=== PATIENT | female | born 1965 | race Caucasian/White ===

== ENCOUNTER 2024-01-28 16:14 | Emergency (ER) | payer OTHER, SELFPAY ==
[2024-01-28 16:23] VITALS: BP 126/69
--- NOTE | 2024-01-28 17:03 | ED.GENMED ---
History of Present Illness
General
Chief Complaint: Musculo-Skeletal Complaint
Source: patient
Time Seen by Provider: 01/28/24 16:58
Travel History
Have you had any contact with someone who has COVID-19?: No
Do you have any symptoms of coronavirus? Fever > 100 degrees, chills, cough, shortness of breath, sore throat, loss of taste or smell, muscle aches, or headache?: No
History of Present Illness
History of Present Illness:
58-year-old female presenting the emergency department for evaluation following an accidental trip and fall where she was walking outside and tripped over the sidewalk landing on her left forearm. She states that her head did strike the ground
however denies any loss consciousness, headache, vomiting, visual changes or any other concerns other than her left forearm pain. Pain worsens when trying to fully extend her left elbow or pronate/supinate. She denies any use of anticoagulants.
Did not take anything for pain prior to arrival. No other concerns at this time.
Past History
Past History
ED Past Medical History: None
ED Past Surgical History: None
Social History
Tobacco: Non-smoker
Alcohol: Occasional
Drug: None
Personal:
Living: with family
Review of Systems
Review of Systems
All Other Systems: ROS reviewed and negative except as documented in HPI and ROS
Phy Exam
Physical Exam
Physical Exam:
GENERAL: Alert , in no apparent distress
EYE: conjunctiva clear
Head: Normocephalic atraumatic
NECK: Supple,
ENT: mmm.
LUNGS: no acute respiratory distress
NEUROLOGICAL: Alert and oriented
SKIN: Warm and dry, skin intact.
MUSCULOSKELETAL: Left upper extremity: Tenderness over the posterior aspect of the left elbow. Range of motion is diminished especially with pronation and supination secondary to pain. Extremities otherwise warm and well-perfused with palpable
radial pulse and otherwise neurovascularly intact
PSYCH: Normal and appropriate interaction.
Scores
Heart Failure Risk
Heart Failure Risk Score: Not Applicable
Heart Score for Chest Pain Patients
STEMI patient?: Not applicable
Withdrawal Assessment of Alcohol
Withdrawal Assessment Completed?: Not applicable
Course
Orders/Labs/Results
Orders:
Orders
01/28/24 16:28
Forearm, Left 2 View [CR Forearm - Left 2 View] Urgent
Comment:
Reason For Exam: injury/trauma
01/28/24 16:58
Sling Left-Treatment ONCE
Vital Signs
Initial and Last Documented VS:
Initial Vital Signs
Temp Pulse Resp BP Pulse Ox
97.5 F 86 18 126/69 98
01/28/24 16:23 01/28/24 16:23 01/28/24 16:23 01/28/24 16:23 01/28/24 16:23
Last Documented Vital Signs
Temp Pulse Resp BP Pulse Ox
97.5 F 73 18 115/78 98
01/28/24 16:23 01/28/24 17:22 01/28/24 16:23 01/28/24 17:22 01/28/24 16:23
MDM/Problems Addressed
Differential Diagnosis Includes:
Elbow contusion, elbow fracture, I do not have concern for intracranial bleeding
MDM/Problems Addressed:
58-year-old female presenting to the emergency department for evaluation after an accidental trip and fall resulting in left elbow pain. X-ray was ordered from triage and shows a nondisplaced radial head fracture. Patient was placed in a sling for
comfort and she states this has helped her pain immensely. She was provided with information for outpatient orthopedic follow-up. Motrin/Tylenol as needed for pain. Otherwise stable for discharge home.
*Radiology
Radiology exam reviewed: preliminary read by ED provider (Nondisplaced radial head fracture)
*Pulse Oximetry
Patient hypoxic: no
*Critical Care Note
Total Time (30-74mins, 75-104mins- exclusive of procedures): Not Applicable
ED Attending Note
-
Portions of this chart may have been created with voice recognition software.� Occasional wrong word or��sound alike� substitutions may have occurred due to the inherent limitations of voice recognition software.
Discharge Plan
Departure
Patient Disposition: Home (Routine Discharge)
Date of Disposition: 01/28/24
Time of Disposition: 17:03
Patient with high blood pressure during this ER visit?: No
Discharge Problem:
Closed fracture of head of left radius
Instructions: Elbow Fracture, Adult ED
Referrals:
Uche Forrest MD [Active] - (Orthopedist - Call for appointment)
Interventions
Interventions:
*Risk Screen - Suicide Last Done: 01/28/24 16:23
*General Assessment Last Done: 01/28/24 16:23
*Neglect/Abuse Screening Last Done: 01/28/24 16:23
*ED COVID-19 Vaccine History Last Done: 01/28/24 16:23
*Nursing Disposition Last Done: 01/28/24 17:22
ED-Musculoskeletal Assessment Last Done: 01/28/24 17:01
Discharge Date and Time
Discharge Date/Time: 01/28/24 17:31
Print Language: SPANISH
[2024-01-28 17:22] VITALS: BP 115/78
== END 2024-01-28 17:31 | disposition home or self-care (01) ==
LOC: EMR 16:14
PROVIDERS: EMERGENCY PHYSICIAN Emergency Medicine; FAMILY PHYSICIAN Nurse Practitioner Family
DX: S52.125A Nondisplaced fracture of head of left radius, initial encounter for closed fracture (principal); S09.90XA Unspecified injury of head, initial encounter; W01.0XXA Fall on same level from slipping, tripping and stumbling without subsequent striking against object, initial encounter; Y93.01 Activity, walking, marching and hiking; Y92.480 Sidewalk as the place of occurrence of the external cause; Z88.1 Allergy status to other antibiotic agents; Z88.2 Allergy status to sulfonamides
CPT/HCPCS: 99283; 73090